=== PATIENT | male | born 1950 | race Caucasian/White ===

== ENCOUNTER 2025-06-29 21:01 | Emergency (ER) | payer OTHER ==
[~2025-06-29] VITALS: Ht 190.5 cm; Wt 85.0 kg
--- NOTE | 2025-06-29 21:22 | ED.PDOC ---
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 Per family member, patient is reported to have been experiencing suicidal ideations, with occasional attempts to walk into oncoming traffic, lately. Patient is also reported to have been without sleep for over the past 2x days and also com plaining of burning sensation whenever urinating. Recent notable diagnosis of Alzheimer's dementia. No endorsement of chest pain, shortness of breath, fever, chills, or further associated symptoms. Chief Complaint: Confusion Time Seen by MD: 21:00 Allergies: Coded Allergies: NO KNOWN ALLERGIES (Unverified , 06/29/25) Mode of Arrival: Ambulatory Severity: Severe Timing: Days Past Medical History PAST MEDICAL HISTORY: CVA, Dementia All Other Systems: Reviewed and Negative (as per HPI) Physical Exam General Appearance: No Apparent Distress, Normal HEENT: Normal ENT Inspection, Pharynx Normal, TMs Normal Neck: Full Range of Motion, Non-Tender, Normal, Normal Inspection Respiratory: Chest Non-Tender, Lungs Clear, No Accessory Muscle Use, No Respiratory Distress, Normal Breath Sounds Cardiovascular: No Edema, No JVD, No Murmur, No Gallop, Normal Peripheral Pulses, Regular Rate/Rhythm Breast Exam: Deferred Gastrointestinal: No Organomegaly, Non Tender, No Pulsatile Mass, Normal Bowel Sounds, Soft Genitalia: Deferred Pelvic: Deferred Rectal: Deferred Extremities: No calf tenderness, Normal capillary refill, Normal inspection, Normal range of motion, Non-tender, No pedal edema Musculoskeletal : Apperance: Normal Neurologic: Alert, pastry cook apprentice II-XII nml as Tested, No Motor Deficits, Normal Affect (poor memory but is normal for family per family), Normal Mood, No Sensory Deficits Cerebellar Function: Normal Reflexes: Normal Skin: Dry, Normal Color, Warm Lymphatic: No Adenopathy Was a procedure done? Was a procedure done?: No Differential Dx Considerations may include: UTI, viral syndrome, Alzheimer's demential, suicidal ideations, depression, hopelessness, malnutrition, dehydration, electrolyte imbalance, among others X-Ray, Labs, Meds, VS Vital Signs Date Time Temp Pulse Resp B/P (MAP) Pulse Ox O2 Delivery O2 Flow Rate FiO2 06/29/25 21:04 97.5 73 16 159/85 99 97.5 Lab Test 06/29/25 21:50 Range/Units White Blood Count 5.1 4.4-10.8 10^3/uL Red Blood Count 5.20 4.5-5.90 10^6/uL Hemoglobin 10.7 L 13.5-17.5 g/dL Hematocrit 34.3 L 41.0-53.0 % Mean Corpuscular Volume 66.0 L 80.0-100.0 fL Mean Corpuscular Hemoglobin 20.5 L 28.0-32.0 pg Mean Corpuscular Hemoglobin Concent 31.1 L 32.0-36.0 g/dL Red Cell Distribution Width 19.1 H 11.8-14.3 % Platelet Count 217 140-450 10^3/uL Mean Platelet Volume 8.4 6.9-10.8 fL Neutrophils (%) (Auto) 55.3 37.0-80.0 % Lymphocytes (%) (Auto) 30.7 10.0-50.0 % Monocytes (%) (Auto) 10.4 0.0-12.0 % Eosinophils (%) (Auto) 2.8 0.0-7.0 % Basophils (%) (Auto) 0.8 0.0-2.0 % Neutrophils # (Auto) 2.8 1.6-8.6 10 ^3/uL Lymphocytes # (Auto) 1.6 0.4-5.4 10 ^3/uL Monocytes # (Auto) 0.5 0-1.3 10 ^3/uL Eosinophils # (Auto) 0.1 0-0.8 10 ^3/uL Basophils # (Auto) 0 0-0.2 10 ^3/uL Nucleated Red Blood Cells 0.1 % Sodium Level 144 136-145 mmol/L Potassium Level 3.9 3.5-5.1 mmol/L Chloride Level 109 H 98-107 mmol/L Carbon Dioxide Level 27 20-31 mmol/L Anion Gap 8 5-15 Blood Urea Nitrogen 26 H 9-23 mg/dL Creatinine 1.29 0.700-1.30 mg/dL Glomerular Filtration Rate Calc 58 >90 mL/min BUN/Creatinine Ratio 20.2 H 10.0-20.0 Serum Glucose 64 L 74-106 mg/dL Lactic Acid Level 1.5 0.4-2.0 mmol/L Calcium Level 9.0 8.7-10.4 mg/dL Magnesium Level 2.0 1.6-2.6 mg/dL Total Bilirubin 1.1 H 0.2-1.0 mg/dL Aspartate Amino Transferase (AST) 19 13-40 U/L Alanine Aminotransferase (ALT) 9 7-40 U/L Alkaline Phosphatase 68 46-116 U/L Total Protein 6.5 5.7-8.2 g/dL Albumin 3.9 3.2-4.8 g/dL Plasma/Serum Blood Alcohol 3.3 <10 mg/dL Time of 1ST Reevaluation: 21:30 Reevaluation 1ST: Unchanged Patient Education/Counseling: Other (patient has dementia ) Family Education/Counseling: Diagnosis, Treatment, Need For Follow Up SEPSIS Sepsis Screen Date sepsis recognized/suspect: Jun 29, 2025 Time Sepsis recognized/suspect: 2103 Recent Procedure: No On Antibiotic Therapy: No Respiratory Rate >20: No Heart Rate >90: No Temp<36 C (96.8 F) or >38.3 C: No SBP <90 or MAP <65 mmHG: No New Acute Mental Status Change: Yes Is the patient on CPAP, BIPAP,: No Physician Orders Urinalysis (06/29/25 21:21) Head Without Contrast (06/29/25 21:21) Drug Screen (06/29/25 21:21) Auto Service Mechanic (06/29/25 21:21) Blood Culture (06/29/25 21:21) Chest Xray 1 View (06/29/25 21:21) Vital Signs Date Time Temp Pulse Resp B/P (MAP) Pulse Ox O2 Delivery O2 Flow Rate FiO2 06/29/25 21:04 97.5 73 16 159/85 99 97.5 Laboratory Tests Test 06/29/25 21:50 Lactic Acid Level 1.5 mmol/L (0.4-2.0) White Blood Count 5.1 10^3/uL (4.4-10.8) Departure 1 Departure Time of Disposition: 22:31 Impression: Primary Impression: Acute renal injury Additional Impressions: Dehydration Metastasis to brain Disposition: [facility] Condition: Guarded Comments 74-year-old male with a history of dementia now with worsened mental status at home. His CT of his head shows what looks like brain metastases in the occipital lobes bilaterally and then a left frontal mass with some surrounding edema. He also has acute renal injury with BUN creatinine elevated 26 and 1.29. Patient was given IV fluids and Decadron IV. Patient will need inpatient care and he has [facility] so we will call them for possible transfer. Critical Care Note Critical Care Time?: Yes (35 min-critical care time only) Critical care comment: Total critical care time: Approximately 36 minutes Due to a high probability of clinically significant, life threatening deterioration, the patient required my highest level of preparedness to intervene emergently and I personally spent this critical care time directly and personally managing the patient. This critical care time included obtaining a history; examining the patient; pulse oximetry; ordering and review of studies; arranging urgent treatment with development of a management plan; evaluation of patient's response to treatment; frequent reassessment; and, discussions with other providers. This critical care time was performed to assess and manage the high probability of imminent, life-threatening deterioration that could result in multi-organ failure. It was exclusive of separately billable procedures and treating other patients. Stability Stability form required: No Heart Score Heart Score: Heart Score Response (Comments) Value History N/A 0 EKG N/A 0 Age N/A 0 Risk Factors N/A 0 Troponin N/A 0 Total 0 I personally scribed for ELY GOODE MD ([email or web address]) on 06/29/25 at 21:22. Electronically submitted by Yadiel Bro ([email or web address]). ELY GOODE MD Jun 29, 2025 21:22
--- NOTE | 2025-06-29 21:53 | DVH ---
CHEST RADIOGRAPH Indication: SOB Technique: Single frontal view of the chest was obtained Comparison: None FINDINGS: Lines and Tubes: None Lungs: No focal consolidation. Eventration of bilateral hemidiaphragm. Pleura: No effusion. No pneumothorax. Cardiomediastinal contours: Unremarkable Bones: No acute osseous abnormality. IMPRESSION: No acute cardiopulmonary disease.
--- NOTE | 2025-06-29 22:09 | DVH ---
EXAM: CT HEAD WITHOUT CONTRAST INDICATION: ALOC TECHNIQUE: CT of the head without intravenous contrast. Radiation Dose Information: CT Dose: CTDI volume is 69.76 mGy. Dose-length product is 1513.82 mGy*cm The dose indicators for CT are the volume Computed Tomography (CT) Dose Index (CTDIvol) and the Dose Length Product (DLP), and are measured in units of mGy and mGy-cm, respectively. These indicators are not patient dose, but values generated from the CT scanner acquisition factors. The report includes radiation exposure data for exposures received during this examination. COMPARISON: None FINDINGS: There is no evidence of acute intracranial hemorrhage, extra-axial collection, mass effect, midline s hift, herniation or hydrocephalus. 16-17 mm mass left frontal lobe vasogenic edema around it. Areas of decreased attenuation noted in the right and left occipital lobes can not entirely exclude a dditional metastatic lesions recommend MRI evaluation. The ventricles, sulci and cisterns are age appropriate. The hernandez-white differentiation is intact. Patchy periventricular and subcortical white matter hypoattenuation is nonspecific but may be related to small vessel ischemic disease. The visualized paranasal sinuses and mastoid air cells are clear. The surrounding soft tissues and osseous structures are unremarkable. IMPRESSION: 1. 16-17 mm left frontal lobe mass with surrounding vasogenic edema. 2. There is no evidence of acute intracranial hemorrhage, hydrocephalus, midline shift or herniation. 3. Areas of decreased attenuation noted in the right and left occipital lobes can not entirely exclud e additional metastatic lesions recommend MRI evaluation. 4. Radiation exposure for this exam:. CRITICAL FINDINGS Critical Result: Cerebral metastasis Findings discussed with RN at 06/29/2025 10:00 PM, and acknowledged receipt and understanding of th e findings. ..
[2025-06-29 22:14] LABS: Hematocrit 34.3 % (41.0-53.0); Hemoglobin 10.7 g/dL (13.5-17.5); Mean Corpuscular Hemoglobin 20.5 pg (28.0-32.0); Mean Corpuscular Volume 66.0 fL (80.0-100.0); Nucleated Red Blood Cells % 0.1 %
[2025-06-29 22:20] LABS: Albumin 3.9 g/dL (3.2-4.8); Alkaline Phosphatase 68 U/L (46-116); Anion Gap 8 (5-15); BUN/Creatinine Ratio 20.2 (10.0-20.0); Bilirubin, Total 1.1 mg/dL (0.2-1.0); Calcium 9.0 mg/dL (8.7-10.4); Carbon Dioxide 27 mmol/L (20-31); Magnesium 2.0 mg/dL (1.6-2.6); Potassium 3.9 mmol/L (3.5-5.1); Sodium 144 mmol/L (136-145); Total Protein 6.5 g/dL (5.7-8.2)
[2025-06-29 22:22] LABS: Alanine Aminotransferase 9 U/L (7-40); Blood Urea Nitrogen 26 mg/dL (9-23); Chloride 109 mmol/L (98-107); Glucose 64 mg/dL (74-106)
[2025-06-30] MEDS: SODIUM CHLORIDE 0.9% 1,000 ML IVB ONE (02:50)
[2025-06-30 03:00] VITALS: BP 138/80; PULSE 65; RESP 18; TEMP 98.3; O2SAT 99
== END 2025-06-30 03:07 | disposition short-term general hospital (02) ==
LOC: ER 21:01
DX: N17.9 Acute kidney failure, unspecified (principal); E86.0 Dehydration; C79.31 Secondary malignant neoplasm of brain; Z86.73 Personal history of transient ischemic attack (TIA), and cerebral infarction without residual deficits
CPT/HCPCS: 36415; 70450; 71045; 80053; 80320; 83605; 83735; 85025; 87040; 96374; 99285; J1100